=== PATIENT | female | born 1980 | race Caucasian/White ===

== ENCOUNTER → 2019-01-09 07:38 | Outpatient (CLI) | payer OTHER, SELFPAY ==
--- NOTE | 2019-01-09 07:41 | DI.US.S_ITS ---
PROCEDURE: US ABDOMEN LIMITED INDICATIONS: RIGHT UPPER QUADRANT PAIN TECHNIQUE: Real-time scanning was performed of the abdominal and retroperitoneal organs, with image documentation. COMPARISON: [facility], , US ABDOMEN, 11/03/2018, 8:51. FINDINGS: Liver: Liver is normal in size and homogeneous in echotexture. Gallbladder: Gallbladder is within normal limits with wall thickness measuring 1.2 mm. No visualized stones. Biliary ducts: Intrahepatic bile ducts are non-dilated. Extrahepatic bile duct caliber measures 4.9 mm. Normal is 6-7 mm or less in diameter, or 10 mm or less post-cholecystectomy. Pancreas: Visualized portions of the pancreas are sonographically normal. Pancreatic duct is mildly prominent measuring 2.3 mm. It is noted that on images present on prior exam, the pancreatic duct is not well identified. IMPRESSION: 1. Mild prominence of the pancreatic duct as above, of unknown clinical significance. Recommend correlation to laboratory values and further imaging as indicated. Dictated by: Edwige Solitario M.D. on 01/09/2019 at 11:09 Approved by: Edwige Solitario M.D. on 01/09/2019 at 11:19
== END ==
PROVIDERS: PCP Family Medicine; Visit Provider Surgery
DX: R10.11 Right upper quadrant pain (principal)
CPT/HCPCS: 76705

== ENCOUNTER → 2019-02-05 12:03 | Outpatient (CLI) | payer OTHER, SELFPAY ==
--- NOTE | 2019-02-05 12:05 | DI.NM.S_ITS ---
PROCEDURE: NM HIDA WITH CCK PHARMACEUTICAL: 5.0 mCi Tc-99m mebrofenin IV; 1.3 mcg CCK IV. INDICATIONS: right upper quadrant pain TECHNIQUE: Following intravenous administration of Tc-99m mebrofenin, sequential anterior abdominal images were obtained. To evaluate the contractile response of the gallbladder in response to Cholecystokinin (CCK), sincalide (0.02 ?g/kg) was administered by slow intravenous infusion approximately 60 minutes after the administration of the radiopharmaceutical. Sequential imaging was continued for 30 minutes after the start of CCK infusion. Gallbladder ejection fraction was calculated. COMPARISON: [facility], US ABDOMEN LIMITED, 01/09/2019, 8:01. [facility], , US ABDOMEN, 11/03/2018, 8:51. FINDINGS: Biliary scan: There is normal tracer uptake and excretion by the liver. There is normal visualization of the intrahepatic ducts, common bile duct, and gallbladder. There is normal tracer transit into the duodenum. CCK stimulation: There is normal contractile response of the gallbladder to CCK infusion. The calculated gallbladder ejection fraction is 66%; normal values are above 35%. It has been shown that any patient abdominal pain after CCK administration is related to the rate of CCK injection, rather than to any underlying gallbladder disease (Clinical Nuclear Medicine 2012; 37: 63-70. Journal of Nuclear Medicine 2014; 55: 1-9). IMPRESSION: 1. Normal filling of gallbladder. No evidence for acute cholecystitis. 2. Normal contractile response of gallbladder to CCK stimulation. Dictated by: Parul Hannah M.D. on 02/05/2019 at 14:36 Approved by: Parul Hannah M.D. on 02/05/2019 at 14:38
== END ==
PROVIDERS: PCP Family Medicine; Visit Provider Surgery
DX: R10.11 Right upper quadrant pain (principal)
CPT/HCPCS: 78227; A9537; J2805

== ENCOUNTER 2019-02-21 13:01 | Day surgery (SDC) | payer OTHER, SELFPAY ==
[2019-02-16 11:24] VITALS: BMI 23.8
[2019-02-21] VITALS (11 sets, daily range): BP systolic 120–155; BP diastolic 73–99; PULSE 64–94; RESP 12–16; TEMP 36.3–37; O2SAT 99–100; BMI 23.6
--- NOTE | 2019-02-21 | PATH_ITS ---
[facility] Accession Number: [id number] . 01 Material submitted: . gallbladder - GALLBLADDER . 02 Diagnosis: Gallbladder: Mild chronic cholecystitis. No definite calculi identified. MRV/02/23/2019 . 02 Electronically signed: . Davis Mullins MD, Pathologist NPI- [id number] . 01 Gross description: . Received in formalin, labeled gallbladder, is an opened gallbladder (length-7.1 cm, diameter-2.5 cm) with green smooth shiny serosa and a patent cystic duct. No lymph nodes are identified. The mucosa is green and semi-velvety. The wall is up to 0.1 cm thick. No nodules, masses or lesions are identified. The bile mixed with the formalin in the container is filtered resulting in multiple fragments of brown-green tissue. No obvious calculi are identified. Section code: (A1) cystic duct resection margin and two serial sections from the body; (A2) two longitudinal sections from the fundus; (A3) filtered tissue fragments. Note: This specimen has been reviewed by Dr. Michaelle Bocanegra. ([id number]) /MRV . 02 Pathologist provided ICD-10: K81.1 . 02 CPT . 291266 Performed at: 01 [facility] [address], [place], [place] [id number] MD Rasheed Go MD Phone: [phone] Performed at: 02 [facility] [address] [place], [place] [id number] MD Nydia Davis MD Phone: [phone]
[2019-02-21] MEDS: LACTATED RINGERS 1,000 ML 42 ML IV ×2 (13:40→16:43)
--- NOTE | 2019-02-21 15:08 | PM.PREOP ---
Pre-operative Note Interval Note History & Physical reviewed/Exam performed by Physician: Yes Changes to H&P: No
[2019-02-21] MEDS: CEFAZOLIN 2 GM/100 ML FROZ.PIGGY IV (15:42)
[2019-02-21] MEDS: BUPIVACAINE 0.5% (PF) VIAL 30 ML INJ (16:10)
--- NOTE | 2019-02-21 16:12 | SUR.OPER ---
Supine on padded OR bed, head on pillow, arm padded and tucked at side, legs uncrossed, safety belt at thigh, tape over blanket over lower legs .
[2019-02-21] MEDS: fentaNYL 100 MCG/2 ML INJ 50 MCG IV ×2 (17:31→17:42)
--- NOTE | 2019-02-21 17:39 | PM.OP.1 ---
Operative Date/Time/Diagnoses Date of procedure: 02/21/19 Time of procedure: 17:39 Pre-op diagnosis: biliary colic Post-op diagnosis: same Procedure & Clinicians Procedure: laparoscopic cholecystectomy Same procedure as scheduled: Yes Indications: 38-year-old female with history of biliary colic. She went she underwent a HIDA scan where she had reproducible biliary colic with the injection of CCK. Surgeon: Kaleb Mcguire Click Yes if Unassisted: Yes Anesthesia Type: General Operative Notes Findings: none Specimen(s): other (gallbladder) Estimated Blood Loss (mL): 20 Procedure in detail: Patient brought to the operating room placed supine on the table. Bilateral lower extremity compression devices were applied. General anesthesia was induced and she was intubated with an endotracheal tube. She received 2 g of Ancef prior to skin incision. Time-out was performed to ensure the correct patient procedure necessary equipment within the operating room. She was prepped and draped in the usual sterile fashion. Began with a infraumbilical incision and the fascia was grasped divided and the abdomen was entered atraumatically. A 12 mm trocar was then placed within the incision. Pneumoperitoneum was established. There was no evidence of injury upon entry. Then placed our working ports 1st high in the epigastrium and 2 in the right lateral upper quadrant. The gallbladder was then retracted superiorly over the liver and then laterally by the fundus. The triangle of calot was carefully skelonized and revealed the cystic duct. Despite complete skeltonization I was unable to identify the cystic artery. The cystic duct was traced as it passed from the common bile duct directly into the gallbladder. It was divided close to the gallbladder between clips, twice proximally once distally and then the transected sharply. The gallbladder was then removed from the gallbladder fossa using electrocautery. The specimen was placed into an Endo-Catch bag and then retrieved through the umbilicus. The abdomen was then irrigated with saline. The gallbladder fossa was inspected to ensure that was hemostatic and the clips were in appropriate position. The ports were then removed under direct visualization. The fascia at the umbilicus was closed with of Vicryl suture in interrupted fashion and skin with Monocryl suture followed by application of Dermabond. The estimated blood loss for the procedure was 20 mL. The sponge instrument count at the end the operation was correct. Patient emerged from anesthesia was extubated and transferred to the postoperative care unit in stable condition Condition: stable Disposition: same day surgery
[2019-02-21] MEDS: OXYCODONE/ACETAMINOPHEN 5/325 TABLET 1 TAB PO (17:47)
[2019-02-21] MEDS: MEPERIDINE 50 MG/ML INJ 25 MG IV (18:00)
--- NOTE | 2019-02-21 18:06 | SUR.PHASEI ---
Held in PACU due to recing IV analgesic. On d/c then with some shivering and a dose of Demerol given as well, so stay extended.
== END 2019-02-21 18:45 | disposition home or self-care (01) ==
PROVIDERS: Surgery; PCP Family Medicine; Visit Provider Surgery
PROC: 0FT44ZZ Resection of Gallbladder, Percutaneous Endoscopic Approach (ICD-10-PCS; CPT 47562; principal; 2019-02-21 14:00)
DX: K81.1 Chronic cholecystitis (principal)
CPT/HCPCS: 47562; 88304; J0690; J2175; J2250; J3010

== ENCOUNTER → 2020-09-17 08:06 | Outpatient (CLI) | payer OTHER, SELFPAY ==
[2020-09-17] MEDS: COVID-19 VACC, Ad26(JANSSEN)/PF 0.5 ML IM (08:15)
== END ==
PROVIDERS: PCP Family Medicine; Visit Provider Internal Medicine
DX: Z23 Encounter for immunization (principal)
CPT/HCPCS: 0031A; 91303

== ENCOUNTER → 2020-12-22 09:16 | Outpatient (CLI) | payer OTHER, SELFPAY ==
[2020-12-22 10:40] LABS: COVID19 -Nasal RAPID Negative (Negative)
== END ==
PROVIDERS: PCP Physician Assistant; Visit Provider Surgery
DX: Z20.822 Contact with and (suspected) exposure to COVID-19 (principal)
CPT/HCPCS: 87635; C9803

== ENCOUNTER 2020-12-23 06:29 | Day surgery (SDC) | payer OTHER, SELFPAY ==
[2020-12-18 09:17] VITALS: BMI 23.3
[2020-12-23] VITALS (7 sets, daily range): BP systolic 111–125; BP diastolic 67–83; PULSE 81–105; RESP 11–16; TEMP 36.3–36.7; O2SAT 97–100; BMI 23.3
[2020-12-23] MEDS: LACTATED RINGERS 1,000 ML 100 ML IV (07:15)
--- NOTE | 2020-12-23 07:32 | PM.HP.1 ---
History of Present Illness History of Present Illness Date Patient Seen: 12/23/20 Time Patient Seen: 07:33 Chief complaint: SDC Narrative: 40-year-old healthy female here for elective ventral hernia repair. No interval changes in health since last seen September 2020. Patient History Medical History Abdominal pain Asthma Easy bruisability History of migraine Kidney stones Pneumonia UTI (urinary tract infection) Surgical History History of hemorrhoidectomy Hx of breast implant (07/2014) Hx of section (07/2014) Hx of cholecystectomy (02/2019) Hx of inguinal hernia repair (1984) Family & Social History Family History Grandfather Cancer Grandmother Cancer Social History: household members spouse,children Tobacco & Substance use: Smoking Status Never smoker alcohol intake current alcohol intake frequency holiday/special occasion Substance Use Type does not use Meds Home Medications and Allergies Home Medications Medication Instructions Recorded Confirmed Type multivitamin 1 cap PO DAILY 01/08/19 12/23/20 History Lactobacillus acidophilus 10,000 mmu cells PO DAILY 12/23/20 12/23/20 History [Probiotic] Allergies Allergy/AdvReac Type Severity Reaction Status Date / Time Sulfa (Sulfonamide Allergy Rash Verified 12/18/20 09:22 Antibiotics) Review of Systems Review of Systems ROS: Yes All systems reviewed with the patient and are negative except as otherwise documented Exam Vital Signs (past 8 hours): - 12/23/20 06:44 Temperature 98.1 F Pulse Rate 83 Respiratory Rate 16 Blood Pressure 125/83 Pulse Oximetry 100 Oxygen Delivery Method Room Air Narrative Exam Narrative: GENERAL-well developed adult female, no acute distress HEENT-no scleral icterus, hearing intact NECK-no JVD, trachea midline CVS- regular rate, no peripheral edema RESP-unlabored respiratory effort, no audible wheezing GI-soft, nontender nondistended MSK-no cyanosis or clubbing, extremities without deformity SKIN-warm, dry NEURO-alert and oriented, no focal deficits PYSCH-Appropriate mood and affect Assessment & Plan Assessment & Plan narrative: 40-year-old healthy female here for elective ventral hernia repair open, possible use of mesh. Technical details the operation were discussed with the patient. Operative risks including bleeding, infection, recurrence of the hernia, chronic pain for discussed. Her questions have been answered and she is in agreement with this plan.
--- NOTE | 2020-12-23 08:10 | SUR.OPER ---
Supine on padded OR bed, head on pillow, arms secured on padded arm boards at <90 degrees abduction, legs uncrossed, safety belt at thigh, tape over blanket over lower legs.
[2020-12-23] MEDS: CEFAZOLIN 1 GM VIAL 2 GM IV (08:16)
[2020-12-23] MEDS: BUPIVACAINE 0.25% (PF) VIAL 20 ML INJ (09:18)
[2020-12-23] MEDS: BUPIVACAINE LIPOSOME 266 MG/20 ML VIAL INJ (09:19)
--- NOTE | 2020-12-23 09:50 | PM.OP.1 ---
Operative Date/Time/Diagnoses Date of procedure: 12/23/20 Time of procedure: 09:50 Pre-op diagnosis: Ventral hernia Post-op diagnosis: same Procedure & Clinicians Procedure: Open ventral hernia repair with mesh Same procedure as scheduled: Yes Indications: Ventral hernia Surgeon: Kaleb Mcguire Anesthesia Type: General Operative Notes Findings: Ghanaian cheese defect superior to the umbilicus of 3 separate fascial defects containing omentum ranging in size between mm to cm Specimen(s): none sent Estimated Blood Loss (mL): 20 Procedure in detail: Patient was brought to the operating room placed supine on the table. Bilateral lower extremity compression devices were applied. She received 2 g of Ancef prior to skin incision. General anesthesia was induced and she was intubated with an LMA ultimately exchanged for an endotracheal tube. She was prepped and draped in sterile fashion. A skin incision was made in the midline superior to the umbilicus. Incision was carried down through the subcutaneous tissue and the fascia was exposed. Examination of the fascia and demonstrated Ghanaian cheese defect involving 3 separate hernias, ranging in size from several mm to several cm. There was omentum protruding through the defect which was incarcerated but viable. The fascia was sharply incised. The fascia was then elevated and the peritoneum along with the involved omentum was dissected off of the fascia. The fascial edges were then freshened. The fascia was then cleared from above and below. The fascia was reapproximated using interrupted Ethibond in evajla-iy-popbo fashion. Length of the fascial incision was approximately 3 inches. A 6 x 6 inch soft Bard ventral mesh was selected and was cut to size such that it provided sufficient overlap in all directions of approximately 3 cm. The mesh was then secured in interrupted fashion to the fascia in an overlay. Wound was copiously irrigated hemostasis was checked. The subcutaneous tissue was then reapproximated using 3-0 Vicryl skin closed with a running subcuticular Monocryl stitch followed by the application of Dermabond. Complications: none Post-operative Condition: stable Disposition: same day surgery
[2020-12-23] MEDS: ACETAMINOPHEN 325 MG TABLET 1000 MG PO (10:00)
[2020-12-23] MEDS: OXYCODONE IR 5 MG TABLET PO ×2 (10:00→10:25)
[2020-12-23] MEDS: HYDROMORPHONE 2 MG INJ IV ×2 (10:08→10:14)
--- NOTE | 2020-12-23 10:26 | SUR.PHASEI ---
Assumed care from Leatha, medicated with fentanyl from Dr. Hidalgo and Leatha medicated pt with Dilaudid and oxycodone. Pt's pain down to 6/10.
== END 2020-12-23 10:52 | disposition home or self-care (01) ==
PROVIDERS: PCP Physician Assistant; Referring Provider Surgery; Visit Provider Surgery
PROC: (CPT 49561; principal; 2020-12-23 07:45)
DX: K43.6 Other and unspecified ventral hernia with obstruction, without gangrene (principal)
CPT/HCPCS: 49561; 49568; 81025; 82962; C1781; C9290; J0690; J1100; J1170; J1885; J2250; J2405; J2704; J3010

== ENCOUNTER → 2021-07-02 08:05 | Outpatient (CLI) | payer OTHER, SELFPAY ==
--- NOTE | 2021-07-02 | DI.MG.S_ITS ---
BILATERAL DIGITAL SCREENING MAMMOGRAM 3D/2D WITH CAD WITH AUGMENTATION: 07/02/2021 CLINICAL: Routine screening. Baseline exam. No prior exams were available for comparison. The tissue of both breasts is heterogeneously dense. This may lower the sensitivity of mammography. Current study was also evaluated with a Computer Aided Detection (CAD) system. No significant masses, calcifications, or other findings are seen in either breast. IMPRESSION: NEGATIVE There is no mammographic evidence of malignancy. A 1 year screening mammogram is recommended. This exam was interpreted at Station ID: [id number]. NOTE: For mammograms, a report in lay terms will be sent to the patient. Approximately 15% of breast malignancies will not be visualized mammographically. In the management of a palpable breast mass, a negative mammogram must not discourage biopsy of a clinically suspicious lesion. Electronically Signed By: Cayden Ron M.D., jr/roberth:07/02/2021 08:42:35 letter sent: Normal Exam ACR BI-RADS Category 1: Negative [id number]
== END ==
PROVIDERS: PCP Family Medicine; Referring Provider Physician Assistant; Visit Provider Physician Assistant
DX: Z12.31 Encounter for screening mammogram for malignant neoplasm of breast (principal)
CPT/HCPCS: 77063; 77067

== ENCOUNTER 2024-06-18 08:46 | Day surgery (SDC) | payer OTHER, SELFPAY ==
[2024-06-18 09:05] VITALS: BP 128/83; PULSE 99; RESP 16; TEMP 36.6; O2SAT 100
--- NOTE | 2024-06-18 09:17 | PM.HP.1 ---
History of Present Illness History of Present Illness Date Patient Seen: 06/18/24 Time Patient Seen: 09:17 Chief complaint: SDC Narrative: 44-year-old female here for colon cancer screening. No family history of colon cancer. PFSH Medical History Kidney stones UTI (urinary tract infection) Easy bruisability Pneumonia Asthma Abdominal pain History of migraine Surgical History Hx of breast implant (07/2014) Hx of cholecystectomy (02/2019) History of hemorrhoidectomy Hx of section (07/2014) Hx of inguinal hernia repair (1984) Family History Grandfather Cancer Grandmother Cancer Social History marital status: household members: spouse and children occupational status: employed Smoking Status: Never smoker alcohol intake: current substance use type: does not use Meds Home Medications and Allergies Home Medications Medication Instructions Recorded Confirmed Type multivitamin 1 cap PO DAILY 01/08/19 02/11/21 History Lactobacillus acidophilus 10 10,000 mmu cells PO DAILY 12/23/20 02/11/21 History billion cell capsule (Probiotic) acetaminophen 325 mg capsule 650 mg (2 x 325 mg) PO QID PRN 12/23/20 02/11/21 Rx (Tylenol) pain #60 caps ibuprofen 200 mg tablet 400 mg (2 x 200 mg) PO Q6H #60 tabs 12/23/20 02/11/21 Rx oxycodone 5 mg tablet 5 mg PO Q8H PRN pain #30 tabs 12/23/20 02/11/21 Rx Allergies Allergy/AdvReac Type Severity Reaction Status Date / Time Sulfa (Sulfonamide Allergy Rash Verified 06/18/24 08:59 Antibiotics) Review of Systems Review of Systems ROS: Yes All systems reviewed with the patient and are negative except as otherwise documented Exam Const General: cooperative HENMT Head: normal to inspection Eyes General: appearance normal, both eyes and all related structures Neck Neck: normal visual inspection Chest Chest: normal inspection of the chest Resp Effort & Inspection: normal respiratory effort Cardio Rate: regular rate GI Inspection: normal to inspection Skin General: no rashes or lesions noted Neuro General: patient alert and patient awake Extrem General: normal to inspection and no pedal edema Psych Appearance: grossly normal Assessment & Plan Assessment & Plan narrative: 44-year-old female here for colon cancer screening. Colonoscopy is pursued today. Time-Based Coding :: [TOTAL MINUTES] spent with patient and on the chart (including review of chart, obtaining history, exam, reviewing outside data, placing orders, documenting exam and treatment plan, and counseling patient) on [DATE].
--- NOTE | 2024-06-18 09:19 | PM.PREOP ---
Pre-operative Note Interval Note History & Physical reviewed/Exam performed by Physician: Yes Changes to H&P: No ASA Class (for procedural sedation): II
--- NOTE | 2024-06-18 10:18 | PM.OP.COLON ---
Operative Date/Time/Diagnoses Date of procedure: 06/18/24 Time of procedure: 10:18 Pre-op diagnosis: Colon cancer screening Post-op diagnosis: same Procedure & Clinicians Study performed: Colonoscopy Same procedure as scheduled: Yes Indications: Colon cancer screening Surgeon: Davis Scruggs Procedure Notes SCOAP/Timeout: Done Procedure in detail: After the risks and benefits were explained, written and verbal informed consent was obtained. The patient was brought into the procedure room and placed into the left lateral decubitus position. Conscious sedation medication was applied as per nursing documentation. Digital rectal examination was accomplished. The scope was introduced into the patient and advanced under direct visualization to the cecum as identified by the appendiceal orifice and ileocecal valve. The scope was slowly withdrawn to carefully examine the mucosa for any defects or lesions. Comprehensive imaging was accomplished throughout the rectum including the dentate line. The colon was decompressed, the scope was then removed from the patient who tolerated the procedure well. Pediatric colonoscope Bowel prep adequate Scope withdrawal time: 10 minutes Sedation minutes: 20 Specimen(s): none sent Complications: none Impression: The patient had a visually normal colon. Terminal ileum was interrogated and also visually normal. Endoscopic diagnosis Visually normal colonoscopy Post-procedure Plan for aftercare: Repeat colonoscopy 10 years for screening purposes. Disposition: PACU
[2024-06-18 10:22] VITALS: BP 109/71; PULSE 78; RESP 20; TEMP 37; O2SAT 99
[2024-06-18 10:27] VITALS: BP 107/72; PULSE 70; RESP 13; O2SAT 99
[2024-06-18 10:28] VITALS: BP 107/69; PULSE 67; RESP 14; TEMP 36.3; O2SAT 100
== END 2024-06-18 10:43 | disposition home or self-care (01) ==
PROVIDERS: Referring Provider Internal Medicine Gastroenterology; Visit Provider Internal Medicine Gastroenterology
PROC: 0DJD8ZZ Inspection of Lower Intestinal Tract, Via Natural or Artificial Opening Endoscopic (ICD-10-PCS; CPT 45378; principal; 2024-06-18 10:00)
DX: Z12.11 Encounter for screening for malignant neoplasm of colon (principal)
CPT/HCPCS: 45378; J2704

== ENCOUNTER → 2024-09-04 16:31 | Outpatient (CLI) | payer OTHER, SELFPAY ==
--- NOTE | 2024-09-04 16:32 | DI.MG.S_ITS ---
BILATERAL DIGITAL SCREENING MAMMOGRAM 3D/2D WITH CAD WITH AUGMENTATION: 09/04/2024 CLINICAL: Routine screening. Family history of breast cancer. Comparison is made to exam dated: 07/02/2021 mammogram - [facility]. There are scattered areas of fibroglandular density (category b / 25%-50% glandular tissue). Current study was also evaluated with a Computer Aided Detection (CAD) system. Bilateral breast implants are present. No significant masses, calcifications, or other findings are seen in either breast. There has been no significant interval change. IMPRESSION: NEGATIVE There is no mammographic evidence of malignancy. A 1 year screening mammogram is recommended. Based on the Tyrer Cuzick model (a risk assessment model) the patient's lifetime risk is 7.1% and her 10 year risk is 1.3%. According to the ACR, ACS, and NCCN guidelines, an annual breast MRI exam along with mammogram is recommended if the patient's lifetime risk is 20% or greater. This exam was interpreted at Station ID: [id number]. NOTE: For mammograms, a report in lay terms will be sent to the patient. Approximately 15% of breast malignancies will not be visualized mammographically. In the management of a palpable breast mass, a negative mammogram must not discourage biopsy of a clinically suspicious lesion. Electronically Signed By: Helio guerin/roberth:09/05/2024 06:48:05 letter sent: Normal Exam ACR BI-RADS Category 1: Negative
== END ==
PROVIDERS: PCP Physician Assistant; Referring Provider Physician Assistant; Visit Provider Physician Assistant
DX: Z12.31 Encounter for screening mammogram for malignant neoplasm of breast (principal); Z80.3 Family history of malignant neoplasm of breast
CPT/HCPCS: 77063; 77067

== ENCOUNTER 2024-11-20 13:05 | Emergency (ER) | payer OTHER, SELFPAY ==
[2024-11-20 13:18] VITALS: BP 130/81; PULSE 104; RESP 18; TEMP 36.8; O2SAT 99; BMI 22.6
[2024-11-20 13:55] LABS: Appearance Urine UA CLEAR; Bilirubin Urine UA NEGATIVE (NEGATIVE); Color Urine UA YELLOW; Glucose Urine UA NEGATIVE (Negative); Ketones Urine UA 1+ (NEGATIVE); Leukocyte Esterase Urine UA NEGATIVE (NEGATIVE); Nitrite Urine UA NEGATIVE (Negative); Occult Blood Urine UA NEGATIVE (Negative); Protein Urine UA NEGATIVE (Negative); Specific Gravity Urine UA 1.015 (1.000-1.035); pH Urine UA 6.5 (4.5-8.0)
[2024-11-20 13:57] LABS: Urine Volume 10mL (spun)
[2024-11-20 13:59] LABS: Bacteria Urine None Seen; Culture Indicated Urine Cult Not Indicated; RBC Urine None Seen (0-5/HPF); Squamous Epithelial Cell Urine None Seen (0-5/HPF); WBC Urine None Seen (0-5/HPF)
[2024-11-20 14:13] LABS: Add Manual Diff / Slide Review NO; Basophils Absolute Auto 0 /uL (0-100); Basophils Percent Auto 0.3 % (0-2); Eosinophils Absolute Auto 0 /uL (0-450); Eosinophils Percent Auto 0.1 % (2-4); Hematocrit 41.7 % (36-46); Hemoglobin 14.3 g/dL (12.0-16.0); Lymphocytes Absolute Auto 1800 /uL (1100-4500); Lymphocytes Percent Auto 14.2 % (25-40); Mean Corpuscular HGB Conc 34.2 % (30-36); Mean Corpuscular Hemoglobin 29.8 PG (26-34); Monocytes Absolute Auto 900 /uL (0-900); Monocytes Percent Auto 6.7 % (3-14); Neutrophils Absolute Auto 10200 /uL (1500-7000); Neutrophils Percent Auto 78.7 % (50-75); Platelet Count 226 X10^3/uL (150-400); Red Blood Cell Count 4.79 X10^6/uL (4.0-5.2); Red Cell Distribution Width 13.1 % (11.6-14.8); White Blood Cell Count 12.9 X10^3/uL (4.5-11.0)
--- NOTE | 2024-11-20 14:16 | DI.CT.S_ITS ---
PROCEDURE: CT ABDOMEN PELVIS W CON INDICATIONS: R flank pain TECHNIQUE: After the administration of intravenous contrast, axial sections acquired from the lung bases to the pubic symphysis. Coronal and sagittal reformats were performed. For radiation dose reduction, the following was used: automated exposure control, adjustment of mA and/or kV according to patient size. COMPARISON: [facility], US ABDOMEN LIMITED, 01/09/2019, 8:01. FINDINGS: Image quality: Diagnostic. Lower Chest: Bilateral breast implants. ABDOMEN: Liver: Multiple subcentimeter hypoattenuating hepatic foci too small to definitively characterize. Gallbladder: Removed. Biliary ducts: No biliary dilation. Pancreas: No ductal dilation. Spleen: Size is within normal limits. Adrenal Glands: No adrenal nodules. Kidneys and Ureters: No hydronephrosis. Subcentimeter low-attenuation foci too small to definitively characterize. Stomach and Bowel: Normal colonic caliber, without significant wall thickening. Peritoneum: No abnormal intraperitoneal fluid. No free air. Ventral Wall: No significant ventral hernia. Abdominal Nodes: No retroperitoneal or mesenteric adenopathy by size criteria. Vessels: Aorta and inferior vena cava are normal in size. PELVIS: Pelvic Organs: Rim enhancing 2 cm focus of low attenuation within the right ovary. Bladder: No bladder wall thickening, accounting for underdistention. Pelvic Nodes: No enlarged lymph nodes. Miscellaneous: No inguinal hernias are seen. Bones: No aggressive osseous abnormality. IMPRESSION: Rim enhancing low-attenuation within the right ovary suggestive of hemorrhagic cyst. No renal, ureteral or bladder calculi. Dictated by: Edwige Solitario M.D. on 11/20/2024 at 15:09 Approved by: Edwige Solitario M.D. on 11/20/2024 at 15:16
[2024-11-20 14:18] LABS: Alanine Aminotransferase 46 IU/L (<35); Albumin 4.9 g/dL (3.5-5.0); Albumin Globulin Ratio 1.6 (1.0-2.8); Alkaline Phosphatase 41 U/L (38-126); Aspartate Aminotransferase 50 IU/L (14-36); BUN Creatinine Ratio 27.5 (6-22); Bilirubin Total 0.6 mg/dL (0.2-1.3); Blood Urea Nitrogen 19 mg/dL (7-17); Calcium 9.8 mg/dL (8.4-10.2); Carbon Dioxide 21 mmol/L (22-32); Chloride 103 mmol/L (98-107); Estimated Glomerular Filt Rate > 60 mL/min (>60); Glucose 105 mg/dL (70-99); HEMOLYSIS 43 (0-50); Lactate (Lactic Acid) 1.2 mmol/L (0.7-2.1); Lipase 82 U/L (23-300); Potassium 3.6 mmol/L (3.4-5.1); Sodium 135 mmol/L (137-145); Total Protein 7.9 g/dL (6.3-8.2)
[2024-11-20] MEDS: KETOROLAC 30 MG/ML VIAL 15 MG IV (14:38)
[2024-11-20 14:42] LABS: Pregnancy Test Urine Negative (Negative)
--- NOTE | 2024-11-20 14:46 | ED_ITS ---
HPI - Female Genitourinary <Xiao Medrano PA-C - Last Filed: 11/20/24 17:46> General Chief complaint: Urogenital-Female Stated complaint: Per patient Possible Kidney infection Time Seen by Provider: 11/20/24 14:07 Source: patient Mode of arrival: Ambulatory History of Present Illness HPI Narrative: 44-year-old female with past medical history nephrolithiasis presents to the ED with 2 days of right-sided flank pain. Patient also endorses chills, nausea, vomiting. Patient denies fever, chest pain, shortness of breath, abdominal pain, dysuria, lightheadedness, dizziness, syncope. Patient denies being . Patient endorses a distant history of kidney stones which she was able to spontaneously pass, which was almost 20 years ago. Pain is worse with movement. No trauma. 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 Related Data Home Medications Medication Instructions Recorded Confirmed multivitamin 1 cap PO DAILY 01/08/19 02/11/21 Lactobacillus acidophilus 10 10,000 mmu cells PO DAILY 12/23/20 02/11/21 billion cell capsule (Probiotic) Previous Rx's Medication Instructions Recorded acetaminophen 325 mg capsule 650 mg (2 x 325 mg) PO QID PRN 12/23/20 (Tylenol) pain #60 caps Allergies Allergy/AdvReac Type Severity Reaction Status Date / Time Sulfa (Sulfonamide Allergy Rash Verified 06/18/24 08:59 Antibiotics) Review of Systems <Xiao Medrano PA-C - Last Filed: 11/20/24 17:46> Constitutional Constitutional: Reports chills, Denies fatigue, Denies fever(s), Denies frequent falls, Denies lethargy and Denies weakness Eyes Eyes: Denies change in vision, Denies eye discharge, Denies irritation and Denies loss of vision ENT Ears, Nose, Mouth, and Throat: Denies change in voice, Denies dizziness, Denies neck pain, Denies sore throat and Denies throat swelling Cardiovascular Cardiovascular: Denies chest pain, Denies irregular heart rhythm, Denies lightheadedness, Denies palpitations, Denies dyspnea, Denies dyspnea on exertion and Denies orthopnea Respiratory Respiratory: Denies cough, Denies dyspnea, Denies dyspnea on exertion and Denies wheezing Gastrointestinal Gastrointestinal: Denies abdominal pain, Denies change in bowel habits, Denies diarrhea, Reports nausea and Reports vomiting Comments: Right-sided flank pain Musculoskeletal Musculoskeletal: Denies neck pain and Denies numbness Integumentary/Breasts Skin/Breast: Denies pruritus, Denies erythema, Denies rash and Denies wounds Neurologic Neurologic: Denies behavioral changes, Denies confusion, Denies dizziness, Denies frequent falls, Denies loss of vision, Denies numbness and Denies weakness Psychiatric Psychiatric: Denies anxiety, Denies behavioral changes, Denies confusion, Denies depression, Denies homicidal ideation and Denies suicidal ideation Endocrine Endocrine: Denies fatigue, Denies flushing and Denies palpitations Hematologic/Lymphatic Hematologic/Lymphatic: Denies easy bruising Allergic/Immunologic Allergic/Immunologic: Denies urticaria, Denies throat swelling and Denies wheezing Patient History <Xiao Medrano PA-C - Last Filed: 11/20/24 17:46> Medical History Kidney stones UTI (urinary tract infection) Easy bruisability Pneumonia Asthma Abdominal pain History of migraine Surgical History Hx of breast implant (07/2014) Hx of cholecystectomy (02/2019) History of hemorrhoidectomy Hx of section (07/2014) Hx of inguinal hernia repair (1984) Family History Grandfather Cancer Grandmother Cancer Exam <Xiao Medrano PA-C - Last Filed: 11/20/24 17:46> Narrative Exam Narrative: Const General:?cooperative, healthy appearing and comfortable [facility] Head:?normal to inspection Ears:?hearing grossly normal bilaterally Nose:?external nose normal Face and sinus:?normal facial exam and sinuses nontender Mouth:?oral mucosae normal Throat:?posterior oropharynx normal Eyes General:?appearance normal, both eyes and all related structures Neck Neck:?normal visual inspection and no lymphadenopathy noted Resp Effort & Inspection:?normal respiratory effort Auscultation:?clear to auscultation bilaterally Cardio Rate:?regular rate Rhythm:?regular rhythm GI Abdomen is soft, nondistended, nontender to palpation. There is significant right-sided CVA tenderness. Neuro General:?patient alert, patient awake and patient oriented x3 Initial Vital Signs Initial Vital Signs: Vital Signs Temperature 98.3 F 11/20/24 13:18 Pulse Rate 104 H 11/20/24 13:18 Respiratory Rate 18 11/20/24 13:18 Blood Pressure 130/81 11/20/24 13:18 Pulse Oximetry 99 11/20/24 13:18 Oxygen Delivery Method Nasal Cannula 11/20/24 13:18 <Vasiliy Edmondson MD - Last Filed: 11/20/24 18:18> Initial Vital Signs Initial Vital Signs: Vital Signs Temperature 98.3 F 11/20/24 13:18 Pulse Rate 104 H 11/20/24 13:18 Respiratory Rate 18 11/20/24 13:18 Blood Pressure 130/81 11/20/24 13:18 Pulse Oximetry 99 11/20/24 13:18 Oxygen Delivery Method Nasal Cannula 11/20/24 13:18 Course <Xiao Medrano PA-C - Last Filed: 11/20/24 17:46> Orders Ordered: ED Orders 11/20/24 13:48 Test Urine Stat Urinalysis and Microscopic Stat 11/20/24 14:00 Complete Blood Count AUTO DIFF Stat Comprehensive Metabolic Panel Stat Lactate (Lactic Acid) Stat Lipase Stat 11/20/24 14:16 CT abdomen pelvis w con Stat 11/20/24 15:29 US pelvic complete Stat Discontinued Medications Ketorolac Tromethamine (Ketorolac 30 Mg/Ml Vial) 15 mg IV NOW ONE Stop: 11/20/24 14:15 Last Admin: 11/20/24 14:38 Dose: 15 mg Documented By: TY Ondansetron HCl (Ondansetron 4 Mg/2 Ml Inj) 4 mg IV NOW PRN PRN Reason: Nausea And Vomiting Ondansetron HCl (Ondansetron 4 Mg Odt) 4 mg PO NOW PRN PRN Reason: Nausea And Vomiting Vital Signs Vital signs: Vital Signs - 8 hr 11/20/24 13:18 11/20/24 17:24 Temperature 98.3 F Pulse Rate 104 H 90 Respiratory Rate 18 16 Blood Pressure 130/81 125/77 Pulse Oximetry 99 99 Oxygen Delivery Method Nasal Cannula Room Air <Vasiliy Edmondson MD - Last Filed: 11/20/24 18:18> Orders Ordered: ED Orders 11/20/24 13:48 Test Urine Stat Urinalysis and Microscopic Stat 11/20/24 14:00 Complete Blood Count AUTO DIFF Stat Comprehensive Metabolic Panel Stat Lactate (Lactic Acid) Stat Lipase Stat 11/20/24 14:16 CT abdomen pelvis w con Stat 11/20/24 15:29 US pelvic complete Stat Discontinued Medications Ketorolac Tromethamine (Ketorolac 30 Mg/Ml Vial) 15 mg IV NOW ONE Stop: 11/20/24 14:15 Last Admin: 11/20/24 14:38 Dose: 15 mg Documented By: TY Ondansetron HCl (Ondansetron 4 Mg/2 Ml Inj) 4 mg IV NOW PRN PRN Reason: Nausea And Vomiting Ondansetron HCl (Ondansetron 4 Mg Odt) 4 mg PO NOW PRN PRN Reason: Nausea And Vomiting Vital Signs Vital signs: Vital Signs - 8 hr 11/20/24 13:18 11/20/24 17:24 Temperature 98.3 F Pulse Rate 104 H 90 Respiratory Rate 18 16 Blood Pressure 130/81 125/77 Pulse Oximetry 99 99 Oxygen Delivery Method Nasal Cannula Room Air MDM - Female Genitourinary <Xiao Medrano PA-C - Last Filed: 11/20/24 17:46> Lab Data 11/20/24 14:00 11/20/24 14:00 Labs: Lab Results 11/20/24 11/20/24 Range/Units 13:48 14:00 WBC 12.9 H (4.5-11.0) X10^3/uL RBC 4.79 (4.0-5.2) X10^6/uL Hgb 14.3 (12.0-16.0) g/dL Hct 41.7 (36-46) % MCV 87.0 (80-100) fL MCH 29.8 (26-34) PG MCHC 34.2 (30-36) % RDW 13.1 (11.6-14.8) % Plt Count 226 (150-400) X10^3/uL Neut % (Auto) 78.7 H (50-75) % Lymph % (Auto) 14.2 L (25-40) % [place] % (Auto) 6.7 (3-14) % Eos % (Auto) 0.1 L (2-4) % Baso % (Auto) 0.3 (0-2) % Neut # (Auto) 30970 H (6396-1794) /uL Lymph # (Auto) 1800 (5336-4947) /uL [place] # (Auto) 900 (0-900) /uL Eos # (Auto) 0 (0-450) /uL Baso # (Auto) 0 (0-100) /uL Sodium 135 L (137-145) mmol/L Potassium 3.6 (3.4-5.1) mmol/L Chloride 103 (98-107) mmol/L Carbon Dioxide 21 L (22-32) mmol/L BUN 19 H (7-17) mg/dL Creatinine 0.69 (0.52-1.04) mg/dL Estimated GFR > 60 (>60) mL/min BUN/Creatinine Ratio 27.5 H (6-22) Glucose 105 H (70-99) mg/dL Lactate 1.2 (0.7-2.1) mmol/L Calcium 9.8 (8.4-10.2) mg/dL Total Bilirubin 0.6 (0.2-1.3) mg/dL AST 50 H (14-36) IU/L ALT 46 H (<35) IU/L Alkaline Phosphatase 41 (38-126) U/L Total Protein 7.9 (6.3-8.2) g/dL Albumin 4.9 (3.5-5.0) g/dL Globulin 3.0 (1.7-4.1) g/dL Albumin/Globulin Ratio 1.6 (1.0-2.8) Lipase 82 (23-300) U/L Urine Color Yellow Urine Appearance Clear Urine pH 6.5 (4.5-8.0) Ur Specific [place] 1.015 (1.000-1.035) Urine Protein Negative (Negative) Urine Glucose (UA) Negative (Negative) g/dL Urine Ketones 1+ H (NEGATIVE) Urine Occult Blood Negative (Negative) Urine Nitrate Negative (Negative) Urine Bilirubin Negative (NEGATIVE) Urine Urobilinogen 1.0 (0.2) E.U./dL Ur Leukocyte Esterase Negative (NEGATIVE) Urine RBC None seen (0-5/HPF) Urine WBC None seen (0-5/HPF) Ur Squamous Epith Cells None seen (0-5/HPF) Urine Bacteria None seen (None) Ur Culture Indicated? Cult not indicated Vol Urine Centrifuged 10ml (spun) Urine Test Negative (Negative) Imaging Data CT scan - abdomen/pelvis: Radiologist's Impression: PROCEDURE: CT ABDOMEN PELVIS W CON INDICATIONS: R flank pain TECHNIQUE: After the administration of intravenous contrast, axial sections acquired from the lung bases to the pubic symphysis. Coronal and sagittal reformats were performed. For radiation dose reduction, the following was used: automated exposure control, adjustment of mA and/or kV according to patient size. COMPARISON: [facility], US, US ABDOMEN LIMITED, 01/09/2019, 8:01. FINDINGS: Image quality: Diagnostic. Lower Chest: Bilateral breast implants. ABDOMEN: Liver: Multiple subcentimeter hypoattenuating hepatic foci too small to definitively characterize. Gallbladder: Removed. Biliary ducts: No biliary dilation. Pancreas: No ductal dilation. Spleen: Size is within normal limits. Adrenal Glands: No adrenal nodules. Kidneys and Ureters: No hydronephrosis. Subcentimeter low-attenuation foci too small to definitively characterize. Stomach and Bowel: Normal colonic caliber, without significant wall thickening. Peritoneum: No abnormal intraperitoneal fluid. No free air. Ventral Wall: No significant ventral hernia. Abdominal Nodes: No retroperitoneal or mesenteric adenopathy by size criteria. Vessels: Aorta and inferior vena cava are normal in size. PELVIS: Pelvic Organs: Rim enhancing 2 cm focus of low attenuation within the right ovary. Bladder: No bladder wall thickening, accounting for underdistention. Pelvic Nodes: No enlarged lymph nodes. Miscellaneous: No inguinal hernias are seen. Bones: No aggressive osseous abnormality. IMPRESSION: Rim enhancing low-attenuation within the right ovary suggestive of hemorrhagic cyst. No renal, ureteral or bladder calculi. Dictated by: Edwige Solitario M.D. on 11/20/2024 at 15:09 Approved by: Edwige Solitario M.D. on 11/20/2024 at 15:16 US - abdomen: Radiologist's Impression: PROCEDURE: US PELVIC COMPLETE INDICATIONS: HEMORRHAGIC CYST ON CT TODAY TECHNIQUE: Real-time scanning was performed of the pelvic organs, with image documentation. Additional endovaginal scanning was necessary due to incomplete visualization of the adnexal and endometrial structures by transabdominal scanning. COMPARISON: [facility], CT, CT ABDOMEN PELVIS W CON, 11/20/2024, 14:51. FINDINGS: Uterus: Uterus is anteverted and normal in size at 8.5 x 5.4 x 4.5 cm. The myometrium is heterogeneous with a Venetian blind appearance. The endometrium measures 8.5 mm combined thickness. Left anterior intramural fibroid measuring 1.0 x 1.3 x 1.3 centimeters. Trace anechoic fluid within the cervix. Ovaries: The right ovary measures 3.3 x 3.2 x 2.5 cm, with a calculated ovarian volume of 14.1 cc. Right ovarian thick-walled cyst with a single thick septation measuring 2.5 x 2.3 x 2.2 centimeters. Peripheral vascularity and vascularity within the septation. The left ovary measures 3.2 x 1.6 x 1.7 cm, with a calculated ovarian volume of 4.7 cc. Less than 12 follicles can be seen in each ovary. No adnexal masses are seen. Other: No pathologic free abdominal or pelvic fluid. [id number] mobile debris seen within the urinary bladder. IMPRESSION: Complex right ovarian cyst measuring 2.5 centimeters. Recommend follow-up ultrasound in 6-12 weeks to assess stability. Mobile debris within the urinary bladder, correlate for signs of cystitis. Venetian blind appearance to the uterus, may represent adenomyosis. Uterine fibroid measuring 1.3 centimeters. We strive to produce accurate, complete, and clear reports of imaging services. To assist us in improving patient care, this report was composed using standard report templates and voice recognition software. Therefore, it may contain abnormal punctuation, insertions and/or omissions. Occasional wrong-word or sound-alike substitutions may occur. Though we review the report and make efforts to correct it, we do recommend that the report be read carefully in proper context to recognize any text inaccuracies. Dictated by: Isrrael Christy M.D. on 11/20/2024 at 16:54 Approved by: Isrrael Christy M.D. on 11/20/2024 at 16:56 [facility] Narrative Medical decision making narrative: 44-year-old female with past medical history nephrolithiasis presents to the ED with 2 days of right-sided flank pain. Concern for kidney stone versus cystitis versus pyelonephritis versus musculoskeletal sprain/strain versus versus other intra-abdominal pathology versus other. Will obtain labs, UA, urine , CT abdomen pelvis. Urine negative. UA is negative for infection. Mild elevation in WBC at 12.9. Mild elevation of transaminases with AST at 50 and ALT at 46. All other labs are unremarkable. Patient given ketorolac for pain. CT abdomen pelvis shows a rim enhancing low attenuation within the right ovary suggestive of hemorrhagic cyst. No renal, ureteral or bladder calculi. Ultrasound was obtained to further characterize. Pelvic ultrasound shows a complex right ovarian cyst measuring 2.5 cm. There is a variation blind appearance to the uterus, may represent adenomyosis. Uterine fibroid measuring 1.3 cm. Mobile debris within the urinary bladder, however there is no correlation for cystitis, given negative UA. Patient's symptoms improved significantly with ketorolac. Discussed findings with patient. Recommend follow-up with OBGYN as soon as possible. Recommend continuing ibuprofen, Tylenol for pain. ED return precautions discussed with patient. Patient verbalized understanding. Medical records reviewed: Yes <Vasiliy Edmondson MD - Last Filed: 11/20/24 18:18> Lab Data Labs: Lab Results 11/20/24 11/20/24 Range/Units 13:48 14:00 WBC 12.9 H (4.5-11.0) X10^3/uL RBC 4.79 (4.0-5.2) X10^6/uL Hgb 14.3 (12.0-16.0) g/dL Hct 41.7 (36-46) % MCV 87.0 (80-100) fL MCH 29.8 (26-34) PG MCHC 34.2 (30-36) % RDW 13.1 (11.6-14.8) % Plt Count 226 (150-400) X10^3/uL Neut % (Auto) 78.7 H (50-75) % Lymph % (Auto) 14.2 L (25-40) % [place] % (Auto) 6.7 (3-14) % Eos % (Auto) 0.1 L (2-4) % Baso % (Auto) 0.3 (0-2) % Neut # (Auto) 83015 H (1527-3142) /uL Lymph # (Auto) 1800 (4630-0231) /uL [place] # (Auto) 900 (0-900) /uL Eos # (Auto) 0 (0-450) /uL Baso # (Auto) 0 (0-100) /uL Sodium 135 L (137-145) mmol/L Potassium 3.6 (3.4-5.1) mmol/L Chloride 103 (98-107) mmol/L Carbon Dioxide 21 L (22-32) mmol/L BUN 19 H (7-17) mg/dL Creatinine 0.69 (0.52-1.04) mg/dL Estimated GFR > 60 (>60) mL/min BUN/Creatinine Ratio 27.5 H (6-22) Glucose 105 H (70-99) mg/dL Lactate 1.2 (0.7-2.1) mmol/L Calcium 9.8 (8.4-10.2) mg/dL Total Bilirubin 0.6 (0.2-1.3) mg/dL AST 50 H (14-36) IU/L ALT 46 H (<35) IU/L Alkaline Phosphatase 41 (38-126) U/L Total Protein 7.9 (6.3-8.2) g/dL Albumin 4.9 (3.5-5.0) g/dL Globulin 3.0 (1.7-4.1) g/dL Albumin/Globulin Ratio 1.6 (1.0-2.8) Lipase 82 (23-300) U/L Urine Color Yellow Urine Appearance Clear Urine pH 6.5 (4.5-8.0) Ur Specific [place] 1.015 (1.000-1.035) Urine Protein Negative (Negative) Urine Glucose (UA) Negative (Negative) g/dL Urine Ketones 1+ H (NEGATIVE) Urine Occult Blood Negative (Negative) Urine Nitrate Negative (Negative) Urine Bilirubin Negative (NEGATIVE) Urine Urobilinogen 1.0 (0.2) E.U./dL Ur Leukocyte Esterase Negative (NEGATIVE) Urine RBC None seen (0-5/HPF) Urine WBC None seen (0-5/HPF) Ur Squamous Epith Cells None seen (0-5/HPF) Urine Bacteria None seen (None) Ur Culture Indicated? Cult not indicated Vol Urine Centrifuged 10ml (spun) Urine Test Negative (Negative) Discharge Plan Departure Patient Disposition: Home Clinical Impression: Flank pain Instructions: DI for Ovarian Cyst Activity Restrictions/Additional Instructions: You were evaluated in the ED today for right-sided flank pain. Your CT scan did not show any kidney stones. Your urine does not show a urinary tract infection. The CT scan and ultrasound do show a right ovarian cyst which could be contributing to your symptoms. There is also a note about adenomyosis and a fibroid. All of these conditions are not emergent and do not require immediate intervention. It is advised that you follow-up with a bearing inspector as soon as possible for further evaluation. You may take 600-800 mg of ibuprofen every 8 hours with food. You may also take 1000 mg of Tylenol every 8 hours. Return to the ED if you have worsening symptoms. Prescriptions: No Action multivitamin capsule 1 cap PO DAILY Probiotic 10 billion cell Capsule 10,000 mmu cells PO DAILY acetaminophen [Tylenol] 325 mg capsule 650 mg PO QID PRN (Reason: pain) Qty: 60 0RF Referrals: Wade Kelly PA-C [Primary Care Provider] - Stand Alone Forms: Patient Portal/API/Survey ED Sign-out <Vasiliy Edmondson MD - Last Filed: 11/20/24 18:18> Cosign ED Attending Markosature Attestation: I was immediately available in the department for consultation. ?This documentation has been reviewed and I agree with assessment and plan. Supervised by Vasiliy Edmondson MD
--- NOTE | 2024-11-20 15:29 | DI.US.S_ITS ---
PROCEDURE: US PELVIC COMPLETE INDICATIONS: HEMORRHAGIC CYST ON CT TODAY TECHNIQUE: Real-time scanning was performed of the pelvic organs, with image documentation. Additional endovaginal scanning was necessary due to incomplete visualization of the adnexal and endometrial structures by transabdominal scanning. COMPARISON: [facility], CT, CT ABDOMEN PELVIS W CON, 11/20/2024, 14:51. FINDINGS: Uterus: Uterus is anteverted and normal in size at 8.5 x 5.4 x 4.5 cm. The myometrium is heterogeneous with a Venetian blind appearance. The endometrium measures 8.5 mm combined thickness. Left anterior intramural fibroid measuring 1.0 x 1.3 x 1.3 centimeters. Trace anechoic fluid within the cervix. Ovaries: The right ovary measures 3.3 x 3.2 x 2.5 cm, with a calculated ovarian volume of 14.1 cc. Right ovarian thick-walled cyst with a single thick septation measuring 2.5 x 2.3 x 2.2 centimeters. Peripheral vascularity and vascularity within the septation. The left ovary measures 3.2 x 1.6 x 1.7 cm, with a calculated ovarian volume of 4.7 cc. Less than 12 follicles can be seen in each ovary. No adnexal masses are seen. Other: No pathologic free abdominal or pelvic fluid. [id number] mobile debris seen within the urinary bladder. IMPRESSION: Complex right ovarian cyst measuring 2.5 centimeters. Recommend follow-up ultrasound in 6-12 weeks to assess stability. Mobile debris within the urinary bladder, correlate for signs of cystitis. Venetian blind appearance to the uterus, may represent adenomyosis. Uterine fibroid measuring 1.3 centimeters. We strive to produce accurate, complete, and clear reports of imaging services. To assist us in improving patient care, this report was composed using standard report templates and voice recognition software. Therefore, it may contain abnormal punctuation, insertions and/or omissions. Occasional wrong-word or sound-alike substitutions may occur. Though we review the report and make efforts to correct it, we do recommend that the report be read carefully in proper context to recognize any text inaccuracies. Dictated by: Isrrael Christy M.D. on 11/20/2024 at 16:54 Approved by: Isrrael Christy M.D. on 11/20/2024 at 16:56
[2024-11-20 17:24] VITALS: BP 125/77; PULSE 90; RESP 16; O2SAT 99
== END 2024-11-20 17:26 | disposition home or self-care (01) ==
PROVIDERS: Emergency Medicine; Emergency Provider Student in an Organized Health Care Education/Training Program; PCP Physician Assistant
DX: R10.9 Unspecified abdominal pain (principal); N83.201 Unspecified ovarian cyst, right side; R11.2 Nausea with vomiting, unspecified
CPT/HCPCS: 36415; 74177; 76856; 80053; 81001; 81025; 83605; 83690; 85025; 96374; 99284; J1885; Q9967